=== PATIENT | male | born 1950 | race Caucasian/White ===

== ENCOUNTER → 2016-11-01 06:40 | Day surgery (SDC) | payer MEDICARE, OTHER ==
[~2016-11-01 06:40] MED LIST: Betamethasone INJ* 6 MG/ML 5 ML VIAL (30 MG) ONE; Buffered Lidocaine 1% SYR 3ML* 3 ML/SYR SYRINGE INTRADERM ONE; Buffered Lidocaine 1% SYR 3ML* 3 ML/SYR SYRINGE ONE; Bupivacaine 0.25% SDV* 30 ML ONE; Bupivacaine 0.5% SDV PF* 30 ML VIAL ONE; Dexamethasone IV* 4 MG/ML 1 ML (4 MG) ONE; DiMENhydriNATE IV* 50 MG/ML VIAL IV PUSH PRN; HYDROcodone/ACETAMIN 5-325 MG* 1 TAB ONE; HYDROcodone/ACETAMIN 5-325 MG* 1 TAB PO PRN; Lidocaine 1% INJ* 10 MG/ML 30 ML SDV ONE; Midazolam* 1 MG/ML 2 ML VIAL (2 MG) ONE; Ondansetron INJ* 2 MG/ML VIAL IV PRN; Propofol* 10 MG/ML 20 ML BTL IV PUSH ONE; ceFAZolin 2 GM PREMIX (*) 2 GM/50 ML BAG IVPB ONE; fentaNYL* 50 MCG/ML 2 ML VIAL (100 MCG VIAL) IV PRN; fentaNYL* 50 MCG/ML 2 ML VIAL (100 MCG VIAL) ONE; oxyCODONE TAB* 5 MG TAB PO PRN
[2016-11-01 10:52] VITALS: BP 138/76
--- NOTE | 2016-11-01 22:07 | OP ---
DATE OF OPERATION: 11/01/16 - [facility] DATE OF : 50 SURGEON: Duy Irby MD. PATIENT SCHEDULER: JHONNY Christian. ANESTHESIOLOGIST: Dr. Britt. ANESTHESIA: General. PRE-OP DIAGNOSES: 1. Left palm, middle, and small finger Dupuytren's disease. 2. Left middle trigger finger. 3. Left ring trigger finger. 4. Right middle trigger finger. 5. Right ring trigger finger. POST-OP DIAGNOSES: 1. Left palm, middle, and small finger Dupuytren's disease. 2. Left middle trigger finger. 3. Left ring trigger finger. 4. Right middle trigger finger. 5. Right ring trigger finger. OPERATIVE PROCEDURES: 1. Excision of Dupuytren's disease, left palm and middle finger. 2. Excision of Dupuytren's disease, left palm and small finger. 3. A1 nohemi release, left middle finger. 4. A1 nohemi release, left ring finger. 5. Corticosteroid injection of tendon sheath, right middle finger. 6. Corticosteroid injection of tendon sheath, right ring finger. INDICATIONS: Jose Alfredo is a 66-year-old gentleman with Dupuytren's disease. He also has left middle and ring trigger fingers and right middle and ring trigger fingers. I performed steroid injections in the office to all 4 trigger fingers. He got about 60% or 70% better and had significant improvement in the catching , but continues to have significant pain and discomfort in those areas. 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 ESTIMATED BLOOD LOSS: 5 mL. COMPLICATIONS: None. FINDINGS: As expected. DESCRIPTION OF PROCEDURE: Jose Alfredo was seen in the preoperative holding area and the correct side and site were marked. We then came back to the operating room and anesthesia was induced. I went ahead and cleansed the skin over the right middle and ring fingers A1 nohemi areas. After the skin was cleansed with alcohol, I then used a 25-gauge needle to inject the right middle finger A1 nohemi with 1 mL of 1% plain lidocaine and 6 mg of betamethasone. I then went ahead and used a 25-gauge needle to inject the right ring finger A1 nohemi with 1 mL of 1% plain lidocaine and 6 mg of betamethasone. The needle was withdrawn, the hand wiped off, and a Band-Aid applied. The left arm was then prepped and draped in the usual fashion and a formal time- out was performed. The left arm was then exsanguinated with the Esmarch and the tourniquet inflated 250 mmHg. The hand was then placed in the lead hand, and I went ahead and marked out Cameron-type incisions over the left middle and small fingers and a longitudinal incision over the A1 nohemi area of the ring finger. Work was begun in the middle finger where full thickness flaps were raised right off of the prominent central cord. Once I had raised the full thickness flaps, I went ahead and incised the central cord proximal. The digital nerves were identified and excision of the cord was carried out from distal to proximal, releasing the vertical septa of Legueu and Juvara to allow the central cord to come up. The central cord inserted on both the distal aspect of the A1 nohemi and the tendon sheath overlying the proximal phalanx. I went ahead and excised the central cord, taking care to preserve both digital nerves. When I had completed the excision of the cord, the MP joint contracture was completely released. I then went ahead and took the 15 blade and made a longitudinal incision through the A1 nohemi to do the trigger finger release. I went ahead and made sure that the release was adequate proximally and distally with the tenotomy scissors. Everything looked good, so I went ahead and irrigated these wounds and let the skin flaps fall back into place. I then went ahead and made the longitudinal incision over the A1 nohemi of the left ring finger. Dissection was carried down with the tenotomy scissors to expose the flexor tendon sheath. A1 nohemi was identified with the use of some Ragnell retractors. I then used a #15 blade to longitudinally incise this. The release was completed proximally and distally with the tenotomy scissors. I then went ahead and irrigated this wound as well. Lastly, I went ahead and raised full-thickness flaps off of the Dupuytren's cord over the small finger. It was an abductor cord originating from the fascia overlying the abductor digiti minimi distal musculature. Both radial and ulnar digital nerves of the small finger were identified. I protected these under direct visualization as I went ahead and excised the abductor cord from proximal to distal in standard fashion. The digital nerve at the level of the MP joint was actually crossing over top of the abductor cord and then dove back deep to the cord a little bit more distally. I went ahead and preserved this and completed the full excision of the cord. The cord was very adherent to the dermis over the area of the proximal phalanx and flap got a bit thin there, but I was able to preserve the skin flap. There was absolutely no more contracture in the PIP joint. Everything looked good, so I went ahead and irrigated that wound down and irrigated all the other wounds again. I then released the apices of each Cameron incision to give me a little more skin length. All the wounds were then closed with some 4-0 nylon sutures. I infiltrated the area with 0.25% Marcaine. The wounds were then dressed with Xeroform, 4x4's, sterile Webril, and an ulnar gutter splint grabbing the middle , ring, and small fingers was placed holding the MP and PIP joints in extension. Tourniquet was deflated and all the fingers pinked up immediately. He was then taken to the recovery room in stable condition. POSTOPERATIVE PLAN: I am going to see him back in 8 days' time and we will take him out of the splint. We will send him over to the therapist for some nighttime extension splinting and to get him moving the fingers. [id number] #: [id number] MTDD
== END | disposition home or self-care (01) ==
LOC: OREAST 06:40
PROVIDERS: ATTEND Orthopaedic Surgery Hand Surgery
DX: M72.0 Palmar fascial fibromatosis [Dupuytren] (principal); M65.352 Trigger finger, left little finger; M65.342 Trigger finger, left ring finger; M65.332 Trigger finger, left middle finger; M65.331 Trigger finger, right middle finger; M65.341 Trigger finger, right ring finger; I10 Essential (primary) hypertension; E78.5 Hyperlipidemia, unspecified; G47.33 Obstructive sleep apnea (adult) (pediatric)
CPT/HCPCS: 88304; J0690; J0702; J1100; J2250; J2704; J3010

== ENCOUNTER 2019-02-11 13:45 | Observation (INO) | payer MEDICARE, OTHER ==
--- OUTSIDE RECORDS SUMMARY | 2019-02-11 13:57 | XMS REPORT | Continuity of Care Document ---
:1950 External Reference #:[id number] Author Name Suri Adame M.D. Address [address] [place] [address] Care Team Providers Name Role Phone Suri Adame M.D. Care Team Information Voltage Inspector Unavailable Suri Adame M.D. Primary Care Physician Unavailable Payers Date Identification Numbers Payment Provider Subscriber Effective: 2019 Policy Number: [id number] [place] Alfredo Mcclellan PayID: [id number] [address] [place] [address] Effective: 2015 Policy Number: [id number] [place] Alfredo Mcclellan Expires: 2019 PayID: [id number] [address] [place] [address] Policy Number: [id number] [place] [address] Life 2ND To [facility] Jose Alfredo Mcclellan PayID: [id number] [address] [place] [address] Effective: 2011 Policy Number: [id number] [facility] Jose Alfredo Mcclellan Expires: 2017 PayID: [id number] [address] Attn: [place] [address] Advance Directives Description No Information Available Problems Active Problems Provider Date Essential hypertension Carter Burton M.D. Onset: 06/04/2014 Hyperlipidemia Carter Burton M.D. Onset: 06/04/2014 Degenerative joint disease involving multiple Suri Adame M.D. Onset: 12/03 joints Rosacea Suri Adame M.D. Onset: 12/03/2015 Clear cell carcinoma of kidney Suri Adame M.D. Onset: 03/20/2016 Disorder of bone Suri Adame M.D. Onset: 01/31/2019 Impaired fasting glycaemia Suri Adame M.D. Onset: 08/02/2018 Inactive Problems Renal mass Suri Adame M.D. Onset: 12/03/2015 Inactive: 07/28/2016 Resolved Problems Eruption Carter Burton M.D. Onset: 06/04/2014 Resolved: 12/03/2015 Family History Date Family Member(s) Observation Comments Father due to Congestive Heart Failure () Father due to Diabetes () Mother due to Natural Causes () Children 2 Social History Type Date Description Comments Sex Unknown Marital Status Legal Status: >35 years Lives With Spouse Diet Healthy, Well Balanced Occupation Retired also retired from [employer] Tobacco Use Start: Unknown End: Former Cigarette Smoker quit Unknown Smoking Status Reviewed: 10/10/04 Former Cigarette Smoker quit ETOH Use Consumes 2 beers per day Tobacco Use Start: Unknown End: Patient is a former Unknown smoker Exercise Exercises sporadically Type/Frequency Allergies, Adverse Reactions, Alerts Description No Known Drug Allergies Medications Active Medications SIG Qnty Indications Ordering Date Provider Meloxicam Take 1 Tablet By 30tabs M72.0 [place] 08/02/2018 15mg Tablets Mouth Once Daily Miguel Angel, [employer] With Food Meclizine HCL 1 by mouth three 90tabs H81.10 Alexandra 10/21/2017 12.5mg times a day as Miguel Angel, [employer] Tablets needed dizziness Metoprolol Tartrate take 1/2 tablet 30tabs Alexandra 10/21/2017 25mg by mouth every Miguel Angel, [employer] Tablets day Aspir-81 1 by mouth every 90tabs Suri Adame, 07/12/[address] chance Banks Metoprolol Succinate take one tablet 30tabs I10 Suri Adame, 07/28/2016 ER by mouth one M.DStar 25mg Tablets ER 24HR time daily Atorvastatin Calcium Take 1 Tablet By 90tabs E78.4 Clark Cristina 06/30/2016 20mg Mouth Every Day MD Tori Tablets Mometasone Furoate 1 apply to Unknown 0.1% affected area Ointment twice a day for up to 7 days Lisinopril Take 2 Tablets 180tabs I10 Alexandra 10mg Tablets By Mouth Every Miguel Angel, [employer] Day Hydrocortisone apply sparingly Unknown 1% Cream to affected areas of skin Latanoprost one drop to each Unknown 0.005% eye at bedtime Solution Super B Complex/C 1 po qd Unknown Capsules Centrum Silver 1 po qd Unknown Tablets Calcium 600 With Unknown Vitamin D History Medications Benadryl Allergy 1-2 every 12 60caps B02.9 Alexandra 11/01/2018 - 25mg hours by mouth [facility], [facility] 01/31/2019 Capsules as needed itching Valacyclovir HCL 1 tab by mouth 21tabs B02.9 [facility], 10/23/2018 - 1gm three times a M.D. 01/31/2019 Tablets day x 7 day Fluticasone 1 puff each 16units [facility], 11/23/2017 - Propionate nostril twice a M.D. 08/02/2018 50mcg/Act day Suspension Meloxicam take one tablet 30tabs M72.0 [place] 01/26/2017 - 15mg Tablets by mouth once [facility] 08/02/2018 daily with food Acetaminophen-Codeine 1 tab by mouth 45tabs M72.0 [facility], 2016 - #3 every 6 hours as M.D. 08/02/2018 300-30mg Tablets needed Avar-E Emollient apply to face 45gm [facility], 12/03/2015 - 10-5% every night M.D. 01/09/2018 Cream Omeprazole 1 by mouth every 30caps K92.1 Carter Burton M.D. 08/28/2015 - 40mg day 07/28/[address] Abdi apply to 1bottle 110.1 Carter Burton M.D. 02/06/2015 - 8% Solution affected nail 08/02/2018 daily as directed Levsin 1-2 by mouth 60tabs 564.1 Carter Burton M.D. 07/10/2014 - 0.125mg Tablets every 4 hours as 12/03/2015 needed Metoprolol Succinate 1 by mouth every 90tabs I10 [facility], 06/04/2014 - ER day M.D. 07/28/2016 50mg Tablets ER 24HR Metronidazole apply to 1tube R21 Carter Burton M.D. 06/04/2014 - 0.75% Gel affected facial 08/02/2018 areas twice a day after washing face Dicyclomine HCL 1 by mouth four 90caps 564.1 Carter Bruton M.D. 06/04/2014 - 10mg times a day as 07/10/2014 Capsules needed Mobic 1 by mouth twice 60tabs 715.09 Carter Burton M.D. 06/04/2014 - 7.5mg Tablets a day as needed 12/03/2015 Avar-E Emollient apply qd prn Unknown - 10-5% 12/03/2015 Cream Zyrtec Allergy 1 by mouth every Unknown - 10mg day 10/23/2018 Tablets Insync Supplement 1 po qd Unknown - 07/28/2016 Fibercon 1 po qd Unknown - 625mg Tablets 07/28/2016 Meloxicam 1 by mouth twice 60tabs Suri Adame - 7.5mg Tablets a day Darren 01/26/2017 Aspirin 81 1 po qd Unknown - 81mg Tablets 07/28/2016 DR Vickers prn Unknown - 220mg Tablets 07/12/2017 Metoprolol Tartrate 1 po qd 401.9 Unknown - 06/04/2014 25mg Tablets Lisinopril 1 po qd Unknown - 10mg Tablets 06/04/2014 Atorvastatin Calcium 1 po qd 90tabs 272.4 Carter Burton M.D. - 12/03/2015 40mg Tablets Immunizations CPT Code Status Date Vaccine Lot # [id number] Given 08/02/2018 High-Dose, Influenza Virus Vacccine-fluzone 65 and [id number] older 09043 Given 07/12/2017 Pneumococcal Immunization [id number] Given 07/12/2017 High-Dose, Influenza Virus Vacccine-fluzone 65 and [id number] older 67105 Given 07/28/2016 High-Dose, Influenza Virus Vacccine-fluzone 65 and [id number] older 34678 Given 12/03/2015 Pneumococcal Conjugate Vacc-13 [id number] Given 05/24/2014 Tdap Tetanus, W Pertussis [id number] Vital Signs Date Vital Result Comment 01/31/2019 8:58am BP Systolic 140 mmHg BP Diastolic 76 mmHg Heart Rate 80 /min Body Temperature 99.1 F Respiratory Rate 16 /min Height 65.5 inches 5'5.50" Weight 165.00 lb BMI (Body Mass Index) 27.0 kg/m2 11/01/2018 8:51am BP Systolic 128 mmHg BP Diastolic 88 mmHg Heart Rate 82 /min Body Temperature 98.2 F Respiratory Rate 16 /min Weight 161.00 lb 10/23/2018 12:29pm BP Systolic 130 mmHg BP Diastolic 70 mmHg Heart Rate 72 /min Body Temperature 98.3 F Respiratory Rate 16 /min Height 65.5 inches 5'5.50" Weight 166.00 lb BMI (Body Mass Index) 27.2 kg/m2 08/02/2018 9:30am BP Systolic 130 mmHg BP Diastolic 62 mmHg Heart Rate 68 /min Body Temperature 98.6 F Respiratory Rate 14 /min Height 65.5 inches 5'5.50" Weight 163.00 lb BMI (Body Mass Index) 26.7 kg/m2 01/10/2018 10:05am BP Systolic 126 mmHg BP Diastolic 70 mmHg Heart Rate 74 /min Body Temperature 98.8 F Respiratory Rate 16 /min Height 65.5 inches 5'5.50" Weight 167.00 lb BMI (Body Mass Index) 27.4 kg/m2 11/30/2017 4:35pm BP Systolic 160 mmHg BP Diastolic 68 mmHg Heart Rate 64 /min Body Temperature 98.1 F Respiratory Rate 16 /min Height 65.5 inches 5'5.50" Weight 164.00 lb BMI (Body Mass Index) 26.9 kg/m2 10/21/2017 11:06am BP Systolic 170 mmHg BP Diastolic 100 mmHg Heart Rate 80 /min Body Temperature 99.3 F Height 65.5 inches 5'5.50" Weight 166.38 lb BMI (Body Mass Index) 27.3 kg/m2 10/07/2017 10:42am BP Systolic 160 mmHg BP Diastolic 96 mmHg Heart Rate 95 /min Body Temperature 98.1 F Respiratory Rate 16 /min O2 % BldC Oximetry 98 % Height 65.5 inches 5'5.50" Weight 163.00 lb BMI (Body Mass Index) 26.7 kg/m2 07/12/2017 2:17pm BP Systolic 140 mmHg BP Diastolic 80 mmHg Heart Rate 76 /min Body Temperature 97.9 F Respiratory Rate 18 /min Height 65.5 inches 5'5.50" Weight 160.00 lb BMI (Body Mass Index) 26.2 kg/m2 01/26/2017 10:21am BP Systolic 128 mmHg BP Diastolic 72 mmHg Heart Rate 64 /min Respiratory Rate 18 /min Height 65.25 inches 5'5.25" measured 12/03/15 Weight 169.12 lb BMI (Body Mass Index) 27.9 kg/m2 07/28/2016 8:53am BP Systolic 124 mmHg BP Diastolic 64 mmHg Heart Rate 66 /min Body Temperature 99.0 F Respiratory Rate 16 /min Height 65.25 inches 5'5.25" measured 12/03/15 Weight 167.25 lb BMI (Body Mass Index) 27.6 kg/m2 12/03/2015 1:35pm BP Systolic 138 mmHg BP Diastolic 70 mmHg Heart Rate 72 /min Body Temperature 98.1 F Respiratory Rate 16 /min Height 65.25 inches 5'5.25" measured 12/03/15 Weight 171.25 lb BMI (Body Mass Index) 28.3 kg/m2 08/28/2015 11:15am BP Systolic 142 mmHg BP Diastolic 88 mmHg Heart Rate 84 /min Body Temperature 97.9 F Respiratory Rate 18 /min Height 65.5 inches 5'5.50" Weight 168.00 lb BMI (Body Mass Index) 27.5 kg/m2 02/06/2015 12:55pm BP Systolic 138 mmHg BP Diastolic 86 mmHg Heart Rate 78 /min Body Temperature 98.5 F Respiratory Rate 16 /min Height 65.5 inches 5'5.50" Weight 166.00 lb BMI (Body Mass Index) 27.2 kg/m2 10/17/2014 1:21pm BP Systolic 140 mmHg BP Diastolic 80 mmHg Heart Rate 90 /min Body Temperature 98.7 F Respiratory Rate 18 /min Height 65.5 inches 5'5.50" Weight 159.00 lb BMI (Body Mass Index) 26.1 kg/m2 07/10/2014 11:06am BP Systolic 148 mmHg BP Diastolic 78 mmHg Heart Rate 72 /min Body Temperature 98.2 F Respiratory Rate 15 /min Height 65.5 inches 5'5.50" Weight 160.00 lb BMI (Body Mass Index) 26.2 kg/m2 06/04/2014 2:05pm BP Systolic 120 mmHg BP Diastolic 82 mmHg Heart Rate 78 /min Body Temperature 97.5 F Height 65.5 inches 5'5.50" Weight 158.50 lb BMI (Body Mass Index) 26.0 kg/m2 05/01/2014 1:54pm BP Systolic 124 mmHg BP Diastolic 78 mmHg Heart Rate 84 /min Body Temperature 98.6 F Respiratory Rate 16 /min Height 65.5 inches 5'5.50" Weight 157.50 lb BMI (Body Mass Index) 25.8 kg/m2 Results Test Date Facility Test Result H/L Range Note Comprehensive Metabolic 08/02/2018 [facility] Sodium 145 mEq/L 134- 149 Prof Potassium 4.9 mEq/L 3.6-5.5 Chloride 96 mEq/L 94-112 Carbon Dioxide 23 mEq/L 21-32 Glucose 111 mg/dL High 70-105 1 BUN 11 mg/dL 6-26 Creatinine 0.8 mg/dL 0.6-1.4 BUN/Creat Ratio 13.8 CALC 8.0-36.0 Calcium 9.8 mg/dL 8.6-10.2 Total Protein 7.1 g/dL 6.4-8.3 Albumin 4.9 g/dL 3.8-5.5 Globulin 2.2 g/dL 2.0-4.8 A/G Ratio 2.2 CALC 0.6-2.3 Alk. Phosphatase 67 U/L 22-95 Alt (SGPT) 26 U/L 7-35 Ast (Sgot) 27 U/L 5-34 Total Bilirubin 0.6 mg/dL 0.2-1.3 GFR Non- >60 ml/min/1.73m^ >=60 GFR >60 ml/min/1.73m^ >=60 Lipid Profile 08/02/2018 [facility] Cholesterol 250 mg/dL High 120- 200 Triglycerides 171 mg/dL 30-200 HDL Cholesterol 93 mg/dL High 30-70 LDL (Calculated) 123 CALC 0-129 VLDL Cholesterol 34 mg/dL 0-50 HDL Risk Factor 2.7 CALC 0.0-4.4 Laboratory test finding 08/02/2018 [facility] TSH 2.32 mIU/L 0.50- 6.00 CBC Electronic Fma 08/02/2018 [facility] WBC 4.1 x10^3/UL 4.0-10.0 RBC 4.60 x10^6/UL 3.93-6.00 HGB 15.1 g/dL 12.0-17.0 HCT 46 % 35-50 MCV 99.1 fL High 80.0-95.0 MCH 32.8 pg High 25.6-32.2 MCHC 33.1 g/dL 32.2-36.0 RDW-CV 13.1 % 11.6-14.4 PLT 237 x10^3/UL 163-400 MPV 10.7 fL 9.4-12.4 [place]# 2.45 x10^3/UL 1.56-6.13 Lymph# 0.92 x10^3/UL Low 1.18-3.74 [place]# 0.59 x10^3/UL 0.24-0.82 Eos # 0.1 x10^3/UL 0.0-0.5 Baso # 0.04 x10^3/UL 0.01-0.08 [place]% 60.4 % 34.0-70.0 Lymph % 22.7 % 20.0-52.0 [place]% 14.5 % High 5.0-12.0 Eos% 1.2 % 0.7-7.0 Baso% 1.0 % 0.1-1.2 Laboratory test 08/02/2018 [facility] Hemoglobin A1c 5.1 % 4.1-5.7 finding (607)- - (Fma) Ua - Micro (Fma) 08/02/2018 [facility] Medicine Appearance clear (607)- - Color yellow Glucose, Urine (Fma/CMC/CTX) neg Bilirubin neg Ketones 40mg/dl # SP Grav 1.025 Blood neg PH 5.5 Protein neg Urobil 0.2 Nitrite neg Leukocytes (Fma/CMC/[facility]rex) neg Hyaline - /Lpf Granular - /Lpf WBC (Fma,[facility]) 0-1 # RBC - Mucus (Fma/CBC/[facility]rex) - /Lpf Epith - /Lpf Bacteria - /Hpf Amorphous (Fma/CMC/[facility]) - /Lpf Crystals, Fluid (Fma/CMC/CTX) - Lipid Profile 01/10/2018 [facility] Cholesterol 215 mg/dL High 120- 200 Triglycerides 153 mg/dL 30-200 HDL Cholesterol 75 mg/dL High 30-70 2 LDL (Calculated) 109 CALC 0-129 VLDL Cholesterol 31 mg/dL 0-50 HDL Risk Factor 2.9 CALC 0.0-4.4 Comprehensive Metabolic Prof 01/10/2018 [facility] Sodium 142 mEq/L 134-149 Potassium 4.7 mEq/L 3.6-5.5 Chloride 99 mEq/L 94-112 Carbon Dioxide 26 mEq/L 21-32 Glucose 113 mg/dL High 70-105 3 BUN 14 mg/dL 6-26 Creatinine 0.7 mg/dL 0.6-1.4 BUN/Creat Ratio 20.0 CALC 8.0-36.0 Calcium 9.6 mg/dL 8.6-10.2 Total Protein 7.2 g/dL 6.4-8.3 Albumin 4.8 g/dL 3.8-5.5 Globulin 2.4 g/dL 2.0-4.8 A/G Ratio 2.0 CALC 0.6-2.3 Alk. Phosphatase 76 U/L 22-95 Alt (SGPT) 26 U/L 7-35 Ast (Sgot) 24 U/L 5-34 Total Bilirubin 0.5 mg/dL 0.2-1.3 GFR Non- >60 ml/min/1.73m^ >=60 GFR >60 ml/min/1.73m^ >=60 CBC Manual Diff-a 01/10/2018 [facility] WBC 4.93 4.0-10.0 (607)- - RBC 4.50 3.93-6.0 Hemoglobin (Fma/CMC/CTX) 14.5 g/dL 12.0-17.0 Hematocrit (Fma/CMC/CTX) 43.4 % 35.0-50.0 Mean Corpuscular Vol 96.4 fL High 80-95 Mean Corpuscular Hemoglobin 32.2 pg 25.6-32.2 Mean Corpuscular Hemo Concen 33.4 g/dL 32.2-36.0 Platelets 230 10^3/ul 163-400 RDW 13.2 11.6-13.7 Mean Platelet Volume 10.8 fL 9.4-12.4 Neutrophil 54 Band 12 Lymphocytes 22 Monocyte 10 # Eosinophils 1 Metamyelocytes 1 Z#Comment rbc/plt normal Basic Metabolic Panel 10/14/2017 [facility] Sodium 136 mmol/L N 133-145 Potassium 4.2 mmol/L N 3.5-5.0 Chloride 99 mmol/L Low 101-111 Co2 Carbon Dioxide 30 mmol/L N 22-32 Anion Gap 7 mmol/L N 2-11 Glucose 120 mg/dL High 70-100 Blood Urea Nitrogen 10 mg/dL N 6-24 Creatinine 0.81 mg/dL N 0.67-1.17 BUN/Creatinine Ratio 12.3 N 8-20 Calcium 9.3 mg/dL N 8.6-10.3 Egfr Non- 95.1 >60 Egfr 122.2 >60 4 Laboratory test 07/05/2017 [facility] LDL, Direct 127 mg/dL 0-130 finding Complete Blood Count 07/05/2017 [facility] WBC 3.1 x10^3/UL Low 3.6- 9.6 5 RBC 4.58 x10^6/UL 3.90-5.70 HGB 15.3 g/dL 12.1-17.2 HCT 44 % 36-50 MCV 96.0 fL 82.2-97.4 MCH 33.3 pg 27.6-33.3 MCHC 34.7 g/dL 33.0-35.5 RDW 14.2 % High 11.6-13.7 PLT 250 x10^3/UL 150-400 MPV 6.6 fL Low 7.4-10.4 Gran # 1.8 x10^3/UL 1.5-7.2 Lymph# 1.0 x10^3/UL 0.7-4.9 [place]# 0.3 x10^3/UL 0.1-0.9 Gran % 53.6 % 42.2-75.2 Lymph % 34.8 % 20.5-51.1 [place]% 11.6 % High 1.7-9.3 6 Lipid Profile 07/05/2017 [facility] Cholesterol 266 mg/dL High 120- 200 Triglycerides 289 mg/dL High 30-200 HDL Cholesterol 91 mg/dL High 30-70 LDL (Calculated) 117 CALC 0-129 VLDL Cholesterol 58 mg/dL High 0-50 HDL Risk Factor 2.9 CALC 0.0-4.4 Comprehensive Metabolic Prof 07/05/2017 [facility] Sodium 140 mEq/L 134-149 Potassium 4.7 mEq/L 3.6-5.5 Chloride 102 mEq/L 94-112 Carbon Dioxide 23 mEq/L 21-32 Glucose 99 mg/dL 70-105 BUN 18 mg/dL 6-26 Creatinine 0.7 mg/dL 0.6-1.4 BUN/Creat Ratio 25.7 CALC 8.0-36.0 Calcium 9.7 mg/dL 8.6-10.2 Total Protein 6.9 g/dL 6.4-8.3 Albumin 4.8 g/dL 3.8-5.5 Globulin 2.1 g/dL 2.0-4.8 A/G Ratio 2.3 CALC 0.6-2.3 Alk. Phosphatase 60 U/L 22-95 Alt (SGPT) 23 U/L 7-35 Ast (Sgot) 27 U/L 5-34 Total Bilirubin 0.6 mg/dL 0.2-1.3 GFR Non- >60 ml/min/1.73m^ >=60 GFR >60 ml/min/1.73m^ >=60 Comprehensive Metabolic Prof 03/15/2017 [facility] Sodium 134 mEq/L 134-149 Potassium 4.2 mEq/L 3.6-5.5 Chloride 97 mEq/L 94-112 Carbon Dioxide 25 mEq/L 21-32 Glucose 88 mg/dL 70-105 BUN 13 mg/dL 6-26 Creatinine 0.6 mg/dL 0.6-1.4 BUN/Creat Ratio 21.7 CALC 8.0-36.0 Calcium 8.6 mg/dL 8.6-10.2 Total Protein 6.7 g/dL 6.4-8.3 Albumin 4.4 g/dL 3.8-5.5 Globulin 2.3 g/dL 2.0-4.8 A/G Ratio 1.9 CALC 0.6-2.3 Alk. Phosphatase 68 U/L 22-95 Alt (SGPT) 23 U/L 7-35 Ast (Sgot) 23 U/L 5-34 Total Bilirubin 0.5 mg/dL 0.2-1.3 GFR Non- >60 ml/min/1.73m^ >=60 GFR >60 ml/min/1.73m^ >=60 Lipid Profile 03/15/2017 [facility] Cholesterol 234 mg/dL High 120- 200 Triglycerides 175 mg/dL 30-200 HDL Cholesterol 84 mg/dL High 30-70 LDL (Calculated) 115 CALC 0-129 VLDL Cholesterol 35 mg/dL 0-50 HDL Risk Factor 2.8 CALC 0.0-4.4 Complete Blood Count 03/15/2017 [facility] WBC 3.0 x10^3/UL Low 3.6- 9.6 7 RBC 4.36 x10^6/UL 3.90-5.70 HGB 14.5 g/dL 12.1-17.2 HCT 42 % 36-50 MCV 97.0 fL 82.2-97.4 MCH 33.3 pg 27.6-33.3 MCHC 34.4 g/dL 33.0-35.5 RDW 13.9 % High 11.6-13.7 PLT 252 x10^3/UL 150-400 MPV 6.9 fL Low 7.4-10.4 Gran # 1.7 x10^3/UL 1.5-7.2 Lymph# 1.0 x10^3/UL 0.7-4.9 [place]# 0.3 x10^3/UL 0.1-0.9 Gran % 54.3 % 42.2-75.2 Lymph % 34.5 % 20.5-51.1 [place]% 11.2 % High 1.7-9.3 8 CBC Manual Diff-Fma 08/05/2016 [facility] WBC 9.6 3.6-9.6 (607)- - RBC 4.37 3.90-5.70 Hemoglobin (Fma/CMC/CTX) 14.6 g/dL 12.1 - 17.2 Hematocrit (Fma/CMC/CTX) 42.7 % 36.1 - 50.3 Mean Corpuscular Vol 98 High 82.2-97.4 Mean Corpuscular Hemoglobin 33.3 27.6-33.3 Mean Corpuscular Hemo Concen 34.1 32.0-36.0 Platelets 258 10^3/ul 150-400 RDW 14.6 High 11.6-13.7 Mean Platelet Volume 6.8 5.5-11.0 Neutrophil 85 Band 1 Lymphocytes 6 Monocyte 8 Macrocytosis slight Z#Comment plts normal Complete Blood Count 07/28/2016 [facility] WBC 2.8 x10^3/UL Low 3.6- 9.6 9 RBC 4.43 x10^6/UL 3.90-5.70 HGB 14.7 g/dL 12.1-17.2 HCT 43 % 36-50 MCV 97.0 fL 82.2-97.4 MCH 33.3 pg 27.6-33.3 MCHC 34.3 g/dL 33.0-35.5 RDW 14.3 % High 11.6-13.7 PLT 237 x10^3/UL 150-400 MPV 6.9 fL Low 7.4-10.4 Gran # 1.5 x10^3/UL 1.5-7.2 Lymph# 1.0 x10^3/UL 0.7-4.9 [place]# 0.3 x10^3/UL 0.1-0.9 Gran % 50.9 % 42.2-75.2 Lymph % 37.3 % 20.5-51.1 [place]% 11.8 % High 1.7-9.3 10 Lipid Profile 07/28/2016 [facility] Cholesterol 241 mg/dL High 120- 200 Triglycerides 158 mg/dL 30-200 HDL Cholesterol 81 mg/dL High 30-70 11 LDL (Calculated) 128 CALC 0-129 VLDL Cholesterol 32 mg/dL 0-50 HDL Risk Factor 3.0 CALC 0.0-4.4 Comprehensive Metabolic Prof 07/28/2016 [facility] Sodium 139 mEq/L 134-149 Potassium 4.8 mEq/L 3.6-5.5 Chloride 98 mEq/L 94-112 Carbon Dioxide 27 mEq/L 21-32 Glucose 93 mg/dL 70-105 BUN 13 mg/dL 6-26 Creatinine 0.7 mg/dL 0.6-1.4 BUN/Creat Ratio 18.6 CALC 8.0-36.0 Calcium 9.4 mg/dL 8.6-10.2 Total Protein 7.1 g/dL 6.4-8.3 Albumin 4.6 g/dL 3.8-5.5 Globulin 2.5 g/dL 2.0-4.8 A/G Ratio 1.8 CALC 0.6-2.3 Alk. Phosphatase 62 U/L 22-95 Alt (SGPT) 30 U/L 7-35 Ast (Sgot) 29 U/L 5-34 Total Bilirubin 0.5 mg/dL 0.2-1.3 GFR Non- >60 ml/min/1.73m^ >=60 GFR >60 ml/min/1.73m^ >=60 Comprehensive Metabolic Prof 06/30/2016 [facility] Sodium 138 mEq/L 134-149 Potassium 4.7 mEq/L 3.6-5.5 Chloride 99 mEq/L 94-112 Carbon Dioxide 27 mEq/L 21-32 Glucose 87 mg/dL 70-105 BUN 11 mg/dL 6-26 Creatinine 0.7 mg/dL 0.6-1.4 BUN/Creat Ratio 15.7 CALC 8.0-36.0 Calcium 9.3 mg/dL 8.6-10.2 Total Protein 7.1 g/dL 6.4-8.3 Albumin 4.0 g/dL 3.8-5.5 Globulin 3.1 g/dL 2.0-4.8 A/G Ratio 1.3 CALC 0.6-2.3 Alk. Phosphatase 63 U/L 22-95 Alt (SGPT) 25 U/L 7-35 Ast (Sgot) 25 U/L 5-34 Total Bilirubin 0.5 mg/dL 0.2-1.3 GFR Non- >60 ml/min/1.73m^ >=60 GFR >60 ml/min/1.73m^ >=60 Lipid Profile 06/30/2016 [facility] Cholesterol 338 mg/dL High 120- 200 Triglycerides 289 mg/dL High 30-200 HDL Cholesterol 84 mg/dL High 30-70 12 LDL (Calculated) 196 CALC High 0-129 VLDL Cholesterol 58 mg/dL High 0-50 HDL Risk Factor 4.0 CALC 0.0-4.4 Complete Blood Count 06/30/2016 [facility] WBC 3.2 x10^3/UL Low 3.6- 9.6 13 RBC 4.41 x10^6/UL 3.90-5.70 HGB 14.9 g/dL 12.1-17.2 HCT 43 % 36-50 MCV 98.0 fL High 82.2-97.4 14 MCH 33.9 pg High 27.6-33.3 MCHC 34.7 g/dL 33.0-35.5 RDW 14.5 % High 11.6-13.7 PLT 236 x10^3/UL 150-400 MPV 7.2 fL Low 7.4-10.4 Gran # 1.7 x10^3/UL 1.5-7.2 Lymph# 1.2 x10^3/UL 0.7-4.9 [place]# 0.3 x10^3/UL 0.1-0.9 Gran % 49.4 % 42.2-75.2 Lymph % 40.0 % 20.5-51.1 [place]% 10.6 % High 1.7-9.3 15 Laboratory test 06/30/2016 [facility] LDL, Direct 216 mg/dL High 0- 130 finding Basic Metabolic 10/17/2014 [facility] Sodium 134 mEq/L 134-149 Profile Potassium 4.4 mEq/L 3.6-5.5 Chloride 96 mEq/L 94-112 Carbon Dioxide 30 mEq/L 21-32 Glucose 103 mg/dL 70-105 BUN 14 mg/dL 6-26 Creatinine 0.7 mg/dL 0.6-1.4 BUN/Creat Ratio 20.0 CALC 8.0-36.0 Calcium 10.0 mg/dL 8.6-10.2 CBC Electronic (Fma) 10/17/2014 [facility] WBC 4.6 3.6-9.6 (607)- - RBC 4.51 3.90-5.70 Hemoglobin (Fma/CMC/CTX) 15.0 g/dL 12.1 - 17.2 Hematocrit (Fma/CMC/CTX) 43.9 % 36.1 - 50.3 Platelets 246 10^3/ul 150-400 Lymph% 22.7 % 17.0-48.0 Mixed% 8.8 Neutrophils % 68.5 Mean Corpuscular Vol 97 82.2-97.4 Mean Corpuscular Hemoglobin 33.2 27.6-33.3 Mean Corpuscular Hemo Concen 34.2 32.0-36.0 RDW 14.5 High 11.6-13.7 Mean Platelet Volume 6.7 5.5-11.0 PT + PTT No 10/17/2014 [facility] PTT 26.9 seconds 23.7-35.5 Therpy/Unkn [address] [place] [address] [phone] PT (No Therapy/Unknown) 11.5 seconds Low 11.7-14.5 16 Inr 0.9 17 Surgical Pathology 09/20/2014 [facility] [place] DATE: <SEE NOTE> Oncology CBC Auto 06/24/2014 [facility] [place] Blood Count 5.3 10^3/uL 4.8-10.8 Diff Red Blood Count 4.70 10^6/uL 4.0-5.4 Hemoglobin 15.0 g/dL 14.0-18.0 Hematocrit 45 % 42-52 Mean Corpuscular Volume 96 fL High 80-94 Mean Corpuscular Hemoglobin 32 pg High 27-31 Mean Corpuscular HGB Conc 33 g/dL 31-36 Red Cell Distribution Width 14 % 10.5-15 Platelet Count 170 10^3/uL 150-450 Mean Platelet Volume 8 um3 7.4-10.4 Abs Neutrophils 3.4 10^3/uL 1.5-7.7 Abs Lymphocytes 1.0 10^3/uL 1.0-4.8 Abs Monocytes 0.7 10^3/uL 0-0.8 Abs Eosinophils 0.1 10^3/uL 0-0.6 Abs Basophils 0.1 10^3/uL 0-0.2 Granulocyte % 65.2 % 38-83 Lymphocyte % 19.2 % Low 25-47 Monocyte % 12.6 % High 1-9 Eosinophil % 2.0 % 0-6 Basophil % 1.0 % 0-2 Comprehensive Metabolic Prof 06/06/2014 Mendez Gemma Sodium 146 mEq/L 134-149 Potassium 4.7 mEq/L 3.6-5.5 Chloride 105 mEq/L 94-112 Carbon Dioxide 23 mEq/L 21-32 Glucose 93 mg/dL 70-105 BUN 15 mg/dL 6-26 Creatinine 0.7 mg/dL 0.6-1.4 BUN/Creat Ratio 21.4 CALC 8.0-36.0 Calcium 9.2 mg/dL 8.6-10.2 Total Protein 7.8 g/dL 6.3-8.1 Albumin 4.8 g/dL 3.8-5.5 Globulin 3.0 g/dL 2.0-4.8 A/G Ratio 1.6 CALC 0.6-2.3 Alk. Phosphatase 60 U/L 22-95 Alt (SGPT) 26 U/L 7-35 Ast (Sgot) 25 U/L 5-34 Total Bilirubin 0.4 mg/dL 0.2-1.3 Lipid Profile 06/06/2014 Andrea Gemma Cholesterol 249 mg/dL High 120- 200 Triglycerides 158 mg/dL 30-200 HDL Cholesterol 79 mg/dL High 30-70 19 LDL (Calculated) 138 CALC High 0-129 VLDL Cholesterol 32 mg/dL 0-50 HDL Risk Factor 3.2 CALC 0.0-4.4 1 consistent w/ previous results 2 consistent w/ previous results 3 RESULTS VERIFIED BY REPEAT ANALYSIS 4 Because ethnic data is not always readily available, this report includes an eGFR for both -Americans and non- Americans. The National Kidney Disease Education Program (NKDEP) does not endorse the use of the MDRD equation for patients that are not between the ages of 18 and 70, are , have extremes of body size, muscle mass, or nutritional status, or are non- or non-. According to the [employer] Kid[employer] Foundation, irrespective of diagnosis, the stage of the disease is based on the level of kidney function: Stage Description GFR(mL/min/1.73 m(2)) 1 Kidney damage with normal or decreased GFR 90 2 Kidney damage with mild decrease in GFR 60-89 3 Moderate decrease in GFR 30-59 4 Severe decrease in GFR 15-29 5 Kidney failure <15 (or dialysis) 5 RESULTS VERIFIED BY REPEAT ANALYSIS 6 RESULTS VERIFIED BY REPEAT ANALYSIS 7 RESULTS VERIFIED BY REPEAT ANALYSIS 8 RESULTS VERIFIED BY REPEAT ANALYSIS 9 RESULTS VERIFIED BY REPEAT ANALYSIS 10 consistent w/ previous results 11 consistent w/ previous results 12 consistent w/ previous results 13 RESULTS VERIFIED BY REPEAT ANALYSIS 14 RESULTS VERIFIED BY REPEAT ANALYSIS 15 RESULTS VERIFIED BY REPEAT ANALYSIS 16 . 17 INTERNATIONAL NORMALIZED RATIO(INR) INDICATIONS INR RANGE PATIENTS NOT ON ANTICOAGULANT THERAPY * DEEP VENOUS THROMBOSIS 2.0-3.0 PULMONARY EMBOLISM 2.0-3.0 ATRIAL FIBRILLATION 2.0-3.0 PROPHYLAXIS: 2.0-3.0 HIGH-RISK SURGERY TISSUE HEART VALVES ATRIAL FIBRILLATION ACUTE MYOCARDIAL INFARCTION VALVULAR HEART DISEASE MECHANICAL PROSTHETIC VALVE 2.5-3.5 * USE OF INR VALUES SHOULD BE LIMITED TO PATIENTS WHO ARE ON STABLE ORAL ANTICOAGULANT THERAPY. AN INR ABOVE 5.0-5.5 APPEARS TO BE ASSOCIATED WITH AN UNACCEPTABLY HIGH RISK OF BLEEDING. 18 RUN DATE: 09/24/14 [facility] LAB LIVE PAGE 1 RUN TIME: [address] [place] [id number] Specimen Inquiry Name: MCCLELLANJOSE ALFREDO COLEMAN : [address]: Yaw Walsh MD Acct: [id number] Unit: [id number] AGE: 64 Location: [facility] Re09/20/14 SEX: M Status: REG REF SPEC: [id number] FAVIOLA: 09/20/14-1416 [facility] DR: Yaw Walsh MD REQ: [id number] RECD: 09/20/14 STATUS: SAMANTHA ARNODL DR: Carter Burton MD _ ORDERED: LEVEL IV FINAL DIAGNOSIS Colon, random biopsies: -- Large intestinal mucosa with no significant pathologic abnormality. -- No evidence of microscopic/lymphocytic colitis, collagenous colitis or other chronic inflammatory bowel process identified. CLINICAL HISTORY Blood in stool, change in bowel habits for screening colonoscopy. Incomplete colonoscopy 12/20. POST-OPERATIVE DIAGNOSIS Screening colonoscopy to cecum, appy orifice and IC fold visible as before very difficult to get to cecum. Appy redundant colon. Mild diverticulosis, colon biopsy right colon - no polyps. IBD vs diverticulosis, rectal normal. Conclusion: negative colonoscopy - biopsy pending. Re - ten years. GROSS DESCRIPTION The specimen is received in formalin labeled, Random Colon Biopsy, and consists of a 1.0 x 0.4 x 0.1 cm aggregate of multiple eubanks-white irregular soft tissue fragments , which is submitted entirely in one cassette. Signed (signature on file) Cortes Barron MD 1215 END OF REPORT * ML=Testing performed at Main Lab DEPARTMENT OF PATHOLOGY, [address] [place] [address] Cortes Barron M.D. Director [facility] # [id number] 19 RESULTS VERIFIED BY REPEAT ANALYSIS Procedures Date Code Description Status 09/18/2018 55610 Dxa Bone Density Study One Or More Sites Axial Skeleton Completed 10/07/2017 57079 Pulse Oximetry Completed 10/17/2014 27124 Electrocardiogram Complete Completed 10/10/2013 56638232 Colonoscopy Completed Encounters Type Date Location Provider Dx Diagnosis Office Visit 11/01/2018 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 complications Office Visit 08/02/2018 9:20a [facility] Office Suri Adame, I10 Essential (primary) M.D. hypertension C64.1 Malignant neoplasm of right kidney, except renal pelvis R73.01 Impaired fasting glucose R29.890 Loss of height Z00.01 Encounter for general adult medical exam w abnormal findings M54.5 Low back pain Z23 Encounter for immunization Office Visit 01/10/2018 10:00a [facility] Office Suri Adame, I10 Essential (primary) M.D. hypertension C64.1 Malignant neoplasm of right kidney, except renal pelvis J06.9 Acute upper respiratory infection, unspecified D72.89 Other specified disorders of white blood cells Office Visit 11/30/2017 4:40p [facility] Suri Adame, J06.9 Acute upper M.D. 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 (primary) hypertension C64.1 Malignant neoplasm of right kidney, except renal pelvis E78.1 Pure hyperglyceridemia Z00.00 Encntr for general adult medical exam w/o abnormal findings D72.819 Decreased white blood cell count, unspecified M54.5 Low back pain Z23 Encounter for immunization Office Visit 01/26/2017 10:50a [facility] Suri Adame, E78.4 Other hyperlipidemia M.D. 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 K92.1 Melena Office Visit 02/06/2015 1:00p Main Office Carter Burton M.D. 695.3 Rosacea 110.1 Dermatophytosis Nail Office Visit 10/17/2014 1:40p Main Office Carter Burton V72.83 Examination M.D. Preoperative Other Spec V72.84 Examination Preoperative Unspec 726.0 Adhesive Capsulitis Shoulder Office Visit 07/10/2014 11:20a Main Office Carter Burton M.D. 401.9 Hypertension Unspec 840.9 Sprains & Strains Shoulder & Upper Arm Unspec 564.1 Irritable Bowel Syndrome Office Visit 06/04/2014 2:10p [facility] Carter Burton V70.0 Examination M.D. General Medical Routine AT Health Care Facility 401.9 Hypertension Unspec 272.4 Hyperlipidemia Other Unspec 782.1 Rash & Other Nonspec Skin Eruption 840.9 Sprains & Strains Shoulder & Upper Arm Unspec 564.1 Irritable Bowel Syndrome 715.09 Osteoarthrosis Generalized Multiple Sites V58.66 Long-Term Use Of Aspirin Office Visit 05/01/2014 2:00p [facility] Office Sheela Mathur, 401.9 Hypertension Afnp-C Unspec 272.4 Hyperlipidemia Other Unspec Plan of Treatment 01/31/2019 - Suri Adame M.D.C64.1 Malignant neoplasm of right kidney, except renal pelvisComments:following Dr Moreno and Elizabeth ;I10 Essential (primary) hypertensionComments:The patient will continue to monitor blood pressure and let me know the blood pressure results if there are readings persistently above 140/90. Goal blood pressure is less than 130/80. Recommend low salt/cardiac diet such as the Mediterranean diet and routine exercise at least 30 minutes a day.Follow up:6 [id number] Other specified disorders of bone density and structure, unspecified siteComments:1200mg Calcium and vitamin D 1000 units daily with weight bearing exerciseAllComments:Medication Management Patient Understands medications he's taking? Yes No Are there Barriersto Adherence? Yes No Has the patient been asked about herbal supplements and therapies, and OTC meds? Yes No
[2019-02-11] MEDS ORDERED: NS 0.9% 1000 ML** 1,000 ML IV ONE ×2 (14:03→14:04)
--- NOTE | 2019-02-11 14:08 | ED ---
Neurological HPI - HPI Summary HPI Summary: Time seen by provider: 1400. The patient is a 68 y/o M presenting to [facility] accompanied by with a chief complaint of sudden onset confusion this morning when he woke up at 0530 this morning. He reports that he got up and was searching for a cat that he doesn't have. His also notes that they were out shopping, and he was unable to figure out how to get back into the car, which is when she brought him here. He additionally c/o diffuse abd pain this morning and body tremors. He denies dysuria, changes in urinary frequency, and slurring of speech. He has hx of HTN and HLD, but no hx of Afib, DM, AZ, or CVA/TIA. He reports that his last known well was at 2100 yesterday. Nonsmoker, drinks 6-7 beers a day. - History of Current Complaint Chief Complaint: EDNeurologicalDeficit Stated Complaint: STROKE LIKE SYMPTOME PER PT Hx Obtained From: Patient, Family/Compliance Technician - Onset/Duration: Sudden Onset, Started hours ago, Still Present Timing: Sudden Onset Onset Severity: Moderate Current Severity: Moderate Neurological Deficit Location: Generalized - confusion Pain Intensity: 0 Pain Scale Used: 0-10 Numeric Character: Other: - POSITIVE: confusion, diffuse abd pain, body tremors; NEGATIVE: dysuria, changes in urinary frequency, slurred speech - Allergy/Home Medications Allergies/Adverse Reactions: Allergies Allergy/AdvReac Type Severity Reaction Status Date / Time No Known Allergies Allergy Verified 11/01/16 06:58 PMH/Surg Hx/FS Hx/Imm Hx Endocrine/Hematology History: Reports: Hx Anticoagulant Therapy - low dose 81 mg ASA Denies: Hx Diabetes Cardiovascular History: Reports: Hx Hypercholesterolemia, Hx Hypertension - WELL CONTROLLED Denies: Hx Pacemaker/ICD Respiratory History: Reports: Hx Sleep Apnea, Other Respiratory Problems/ Disorders - ex-smoker (1ppd x 30 years) GI History: Reports: Hx Diverticulosis, Hx Obstructive Bowel, Other GI Disorders - polyps Musculoskeletal History: Reports: Hx Arthritis - HANDS, SHOULDERS, Other Musculoskeletal History - s/p surgery bilateral hand contractures Sensory History: Reports: Hx Contacts or Glasses - GLASSES, Hx Glaucoma - STARTED ON EYE DROPS 09/24, BEING EVALUATED AGAIN 11/2016 Denies: Hx Hearing Aid Opthamlomology History: Reports: Hx Contacts or Glasses - GLASSES, Hx Glaucoma - STARTED ON EYE DROPS 09/24, BEING EVALUATED AGAIN 11/2016 Neurological History: Reports: Other Neuro Impairments/Disorders - Short term memory loss, (right) sided numbness. Psychiatric History: Denies: Hx Panic Disorder - Surgical History Surgery Procedure, Year, and Place: 2006 [facility]- (left) Dupuytren release little finger and palm mass. 03/2008 [facility]- (right) Dupuytren release ring & middle fingers,. 2011 [facility]- (right) ulnar nerve transposition. Hammer toe left foot 4th toe many yrs ago. tonsillectomy as a child. Tonsils (age 12),. Dental surgery. 10/2014 RT SHOULDER [facility] Hx Anesthesia Reactions: No Infectious Disease History: No Infectious Disease History: Denies: Traveled Outside the [place] in Last 30 Days - Family History Known Family History: Positive: Diabetes - Social History Alcohol Use: Daily Alcohol Amount: 6-7 DRINKS/DAY Hx Substance Use: No Substance Use Type: Reports: None Hx Tobacco Use: No Smoking Status (MU): Former Smoker Type: Cigarettes Amount Used/How Often: 1PPD 30 YRS Length of Time of Smoking/Using Tobacco: 30 YRS Have You Smoked in the Last Year: No Review of Systems Positive: Other - body tremors Positive: Abdominal Pain Negative: dysuria, frequency - normal Neurological: Other - confusion Negative: Slurred Speech All Other Systems Reviewed And Are Negative: Yes Physical Exam - Summary Physical Exam Summary: GENERAL: Patient is a well-developed and nourished male who is lying comfortable in the stretcher. Patient is not in any acute respiratory distress. HEAD AND FACE: Normocephalic EYES: PERRLA, EOMI x 2. EARS: Hearing grossly intact. MOUTH: Oropharynx within normal limits. NECK: Supple, trachea is midline, no adenopathy, no JVD, no carotid bruit. CHEST: Symmetric, no tenderness at palpation LUNGS: Clear to auscultation bilaterally. No wheezing or crackles. CVS: Tachycardic rate and rhythm, S1 and S2 present, no murmurs or gallops appreciated. ABDOMEN: Soft, non-tender. Bowel sounds are normal. No abnormal abdominal pulsations. EXTREMITIES: Full ROM in all major joints, no edema, no cyanosis or clubbing. NEURO: Alert and oriented x 3. No acute neurological deficits except for mild altered status. Speech is normal and follows commands. Exhibits cranial nerves II-VII intact SKIN: Dry and warm Triage Information Reviewed: Yes Vital Signs On Initial Exam: Initial Vitals Temp Pulse Resp BP Pulse Ox 99.1 F 133 21 178/100 95 02/11/19 13:48 02/11/19 13:48 02/11/19 13:48 02/11/19 13:48 02/11/19 13:48 Vital Signs Reviewed: Yes - Bernardino Coma Scale Best Eye Response: 4 - Spontaneous Best Motor Response: 6 - Obeys Commands Best Verbal Response: 4 - Confused Coma Scale Total: 14 Diagnostics - Vital Signs Vital Signs Temp Pulse Resp BP Pulse Ox 02/11/19 13:48 99.1 F 133 21 178/100 95 - Laboratory Result Diagrams: 02/11/19 13:46 02/11/19 13:46 Lab Statement: Any lab studies that have been ordered have been reviewed, and results considered in the medical decision making process. - Radiology CXR Radiology Interpretation Completed By: Radiologist Summary of Radiographic Findings: No radiographic evidence of acute cardiopulmonary disease. ED physician has reviewed this report. - CT Brain CT CT Interpretation Completed By: Radiologist Summary of CT Findings: CT findings are most consistent with very mild chronic microvascular disease without acute intracranial abnormality. ED physician has reviewed this report. - EKG 13:56 Cardiac Rate: Tachycardia - 120 bPM EKG Rhythm: Sinus Tachycardia EKG Comparison: Other - No previous EKG for comparison. Summary of EKG Findings: Minimal ST depression in anterior and lateral leads. 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 Operator/Release Non-Paretic Hand: Both Correctly Best Gaze (Only Horizontal Eye Movement): Normal Visual Field Testing: No Visual Loss Facial Paresis-Pt to Smile & Close Eyes or Grimace Symmetry: Normal/Symmetrical Motor Function - Right Arm: No Drift-Holds 10 Seconds Motor Function - Left Arm: No Drift-Holds 10 Seconds Motor Function - Right Leg: No Drift-Holds 10 Seconds Motor Function - Left Leg: No Drift-Holds 10 Seconds Limb Ataxia-Must be out of Proportion to Weakness Present: Absent Sensory (Use Pinprick to Test Arms/Legs/Trunk/Face): Normal Best Language (Describe Picture, Name Items): No Aphasia Dysarthria (Read Several Words): Normal Extinction and Inattention: No Abnormality Total Score: 0 Re-Evaluation - Re-Evaluation First Eval Re-Evaluation Time: 17:12 Change: Unchanged Comment: I spoke with the patient concerning admission to [facility] for further care. He still isn't feeling well. Course/Dx - Course Course Of Treatment: Time seen by provider: 1400. The patient is a 68 y/o M presenting to [facility] accompanied by with a chief complaint of sudden onset confusion this morning when he woke up at 0530 this morning with episodes of trying to find a cat that he didnt have and difficulty figuring out how to get in the car. Upon physical exam, the patient exhibits cranial nerves II-VII intact, tachycardiac, and body tremors; GCS: 14, NIH: 1. In the ED course, the patient was given Ns, Potassium Chloride, Ativan, and Thiamine. EKG reveals sinus tachycardia at [address] depression in anterior and lateral leads. CXR reveals no acute process. Brain CT reveals no acute intracranial abnormality. I spoke with Dr. Dobbs, hospitalist, at 1740 concerning admission. She accepts the patient at this time. He is diagnosed with altered mental status. He agrees with plan and understands the need for admission at this time. - Diagnoses Provider Diagnoses: Altered mental status - Physician Notifications Discussed Care Of Patient With: Lor Dobbs - hospitalist Time Discussed With Above Provider: 17:40 Instructed by Provider To: Other - I discussed the case with the hospitalist. She accepts the patient for admission. Discharge - Sign-Out/Discharge Documenting (check all that apply): Patient Departure - Patient will be admitted to [facility] for further care. Patient Received Moderate/Deep Sedation with Procedure: No - Discharge Plan Condition: Stable Disposition: ADMITTED TO [facility] - Billing Disposition and Condition Condition: STABLE Disposition: Admitted to [facility] - Attestation Statements Document Initiated by Fidencio: Yes Documenting Scribe: Fide Solorzano Provider For Whom Fidencio is Documenting (Include Credential): Dr. Maritza Francisco MD Scribe Attestation: Fide Tomlinson scribed for Dr. Maritza Francisco MD on 02/12/19 at 1306. Scribe Documentation Reviewed: Yes Provider Attestation: The documentation as recorded by the scribe, Fide Solorzano accurately reflects the service I personally performed and the decisions made by me, Dr. Maritza Francisco MD Status of Fidencio Document: Viewed
[2019-02-11 15:04] LABS: Hematocrit 40 % (42-52); Hemoglobin 13.6 g/dL (14.0-18.0); Mean Corpuscular HGB Conc 34 g/dL (31-36); Mean Corpuscular Hemoglobin 33 pg (27-31); Mean Corpuscular Volume 97 fL (80-94); Platelet Count 229 10^3/uL (150-450); Red Blood Count 4.11 10^6 /uL (4.18-5.48); Red Cell Distribution Width 14 % (10.5-15); White Blood Count 7.4 10^3/uL (3.5-10.8)
[2019-02-11 15:13] LABS: ABS Lymphocytes 0.5 10^3/ul (1.0-4.8); ABS Monocytes 0.8 10^3/ul (0-0.8); ABS Neutrophils 5.9 10^3/ul (1.5-7.7); Activated Partial Thrombo Time 23.8 seconds (26.0-36.3); INR 1.04 (0.82-1.09); Lymphocyte % 6.6 %
[2019-02-11 15:21] LABS: ALT 19 U/L (7-52); AST 21 U/L (13-39); Albumin 4.4 g/dL (3.2-5.2); Albumin/Globulin Ratio 1.9 (1-3); Alkaline Phosphatase 50 U/L (34-104); Anion Gap 11 mmol/L (2-11); BUN/Creatinine Ratio 19.4 (8-20); Blood Urea Nitrogen 14 mg/dL (6-24); C Reactive Protein 1.01 mg/L (<8.01); CO2 Carbon Dioxide 25 mmol/L (22-32); Calcium 8.6 mg/dL (8.6-10.3); Chloride 100 mmol/L (101-111); EGFR African American 131.4 (>60); EGFR Non-African American 108.6 (>60); Globulin 2.3 g/dL (2-4); Glucose 106 mg/dL (70-100); Potassium 3.6 mmol/L (3.5-5.0); Sodium 136 mmol/L (135-145); Total Protein 6.7 g/dL (6.4-8.9)
[2019-02-11 15:25] LABS: BNP 59 pg/mL (<=100)
[2019-02-11 15:31] LABS: Alcohol < 10 mg/dL (<10)
[2019-02-11] MEDS ORDERED: Lorazepam PYXIS KEY PRN (16:00)
[2019-02-11] MEDS ORDERED: LORazepam INJ* 2 MG/ML 1 ML VIAL IV PUSH ONE (16:00)
[2019-02-11 16:03] LABS: Urine Appearance Cloudy; Urine Bilirubin Negative (Negative); Urine Blood Negative (Negative); Urine Color Yellow; Urine Glucose Negative (Negative); Urine Ketones 2+ (Negative); Urine Nitrite Negative (Negative); Urine Protein Negative (Negative); Urine Specific Gravity 1.018 (1.010-1.030); Urine Urobilinogen Negative (Negative)
[2019-02-11] MEDS ORDERED: Lorazepam PYXIS KEY ONE (16:06)
[2019-02-11] MEDS ORDERED: LORazepam INJ* 2 MG/ML 1 ML VIAL ONE (16:06)
[2019-02-11] MEDS ORDERED: Acetaminophen TAB* 325 MG PO PRN (18:21)
[2019-02-11] MEDS ORDERED: Thiamine IV* 100 MG/ML 2 ML VIAL IM ONE (18:29)
[2019-02-11] MEDS ORDERED: Potassium Chlor TAB* 20 MEQ TAB.ER PO ONE (18:33)
[2019-02-11] MEDS ORDERED: Metoprolol Succinate XL TAB* 50 MG PO SCH (18:45)
[2019-02-11 18:58] LABS: Magnesium 2.2 mg/dL (1.9-2.7)
[2019-02-11] MEDS ORDERED: Enoxaparin(*) 40 MG/0.4 ML SYR SUBCUT SCH (19:00)
[2019-02-11] MEDS ORDERED: LORazepam INJ* 2 MG/ML 1 ML VIAL IV PUSH SCH (19:00)
[2019-02-11 19:15] LABS: TSH (Thyroid Stimulating Horm) 1.04 mcIU/mL (0.34-5.60)
[2019-02-11] MEDS ORDERED: Atorvastatin* 20 MG TAB PO SCH (21:00)
--- NOTE | 2019-02-11 22:28 | HP ---
CC: Dr. Suri Adame.* HISTORY AND PHYSICAL: DATE OF ADMISSION: 02/11/19 PRIMARY CARE PHYSICIAN: Dr. Suri Adame. HEALTHCARE PROXY: His , Gian. CODE STATUS: Full. CHIEF COMPLAINT: Altered mental status, disorientation for a few hours. HISTORY OF PRESENT ILLNESS: Mr. Gerard is a 68-year-old man with hypertension, osteoarthritis, rosacea, who presents with his for disorientation since the morning. The patient reports that he has been in his usual state of health without any recent dietary changes or signs of infection and he woke up this morning and states that he was confused. He says that he has one cat at home but was looking for a second cat that they do not have. He and his went to [facility], and while there, he was having difficulty understanding how to use his debit card, so when they finished shopping, they drove right from [facility] to [facility]. states that the patient did not look different to her at this time , denied facial droop or slurred speech. The patient also denied issues with gait or new onset of weakness or fumbling with objects in his hand. The patient also denied fevers, chills, or night sweats recently, although he reports that this morning during the episodes of confusion he experienced tremulousness and feeling warm but did not take his temperature. The only other associated symptom reported is decreased appetite today and the patient has so far not taken any of his medications. The patient otherwise denies headache, neck stiffness, upper respiratory infection, chest pain, shortness of breath, abdominal pain, nausea, vomiting, constipation, diarrhea, or new rash. He does report an older rash, for which he was referred to Dermatology. He reports that he recently had shingles, which has resolved, but the medication he took for shingles causedo a rash around his face, trunk, and extremities that has resolved except for some scabbing over his ears. Otherwise, 10-point review of systems is negative. In the emergency room, he was afebrile but tachycardic to 120 with sinus tachycardia with minimal ST depressions noted in the anterior leads. The patient continues to deny chest pain, shortness of breath, diaphoresis, and his first troponin was negative. He was given 2 L of normal saline and lorazepam 0.5 mg given concern for alcohol withdrawal, although the patient states that he drinks approximately 6 to 7 drinks per day and this has not changed recently and he has not been trying to quit. He is admitted to Medicine for altered mental status. PAST MEDICAL HISTORY: 1. Hypertension. 2. High cholesterol. 3. Alcohol use disorder. 4. Rosacea. 5. Seasonal allergies. 6. Osteoarthritis HOME MEDICATIONS: 1. Lisinopril 10 mg daily. 2. Metoprolol succinate 25 mg daily and metoprolol tartrate 25 mg once a day ( this is on list by and she reports the patient takes this as well every day ). 3. Atorvastatin 20 mg daily. 4. Aspirin. 5. Meloxicam 7.5 mg twice a day. 6. Topical creams including hydrocortisone and emollient cream. 7. Zyrtec. 8. Vitamin B complex daily. 9. Meclizine 12.5 mg 3 times a day as needed for dizziness. ALLERGIES: No known drug allergies. FAMILY HISTORY: The patient's father of heart failure at the age of 60. Mother of old age in her 90s. SOCIAL HISTORY: The patient lives with his of 40 years. 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 He quit tobacco use at the age of 58. He smoked for 40 years of just under a pack per day. He reports drinking 6 to 7 light beers per day. No history of alcohol withdrawal or alcohol withdrawal seizures or intubation. Denies other drugs. PHYSICAL EXAMINATION GENERAL: Well-appearing friendly man, in no acute distress, nontoxic. VITAL SIGNS: T-max 99.7, heart rate 110, blood pressure 149/79, respiratory rate 12, oxygen saturation 96% on room air. HEENT: Oropharynx clear. Moist mucous membranes. NECK: No JVD. Supple, able to touch chin to chest without pain. LUNGS: Clear to auscultation bilaterally. HEART: Tachycardic. Regular rhythm. No murmur, gallops, rubs. ABDOMEN: Soft, nontender, and nondistended. EXTREMITIES: Lower extremities without edema. Warm and well-perfused. NEURO: A and O x3. No slurred speech. CN II through XII intact. Elbow flexion and extension 5/5 bilaterally. Handgrip 5/5 bilaterally. Lower extremities with hip flexion and knee flexion-extension 5/5 bilaterally. Sensation intact b/l over extremities and trunk. [id number] normal bilaterally in hands. SKIN: Flaky greasy skin noted around hairline and over ears. Some scabs on ears. DIAGNOSTIC STUDIES/LAB DATA: Labs reviewed and significant for mild macrocytic anemia, hemoglobin 13.6, MCV 97, no known baseline. BMP unremarkable. Lactic acid 1. UA notable for ketones. CRP 1. BNP 59. TSH pending. Chest x-ray PA and lateral without radiographic evidence of acute pulmonary disease. Brain CT, most consistent with very mild chronic microvascular disease without acute intracranial abnormality. ASSESSMENT AND PLAN: This is a 68-year-old man with a history of hypertension, hyperlipidemia, OA, and alcohol use disorder who is presenting after a morning of disorientation associated with tremulousness and feeling warm, which has self resolved without intervention. He is found in the emergency department with tachycardia with labs largely unremarkable and imaging of chest and head not concerning for an acute process. 1. Altered mental status, resolved. Unclear what process caused altered sensorium and disorientation in the morning that spontaneously resolved, but differential is incredibly broad. Given tremulousness and feeling warm without focal neuro deficits, it is unlikely to be an ischemic process in the brain. The patient does have tachycardia and reported feeling warm, but he is without an elevated white count and his CRP is normal, which makes infection less likely. He also has no other focal symptoms of infection. The patient has not recently discontinued alcohol use, so withdrawal is unlikely, and he has no e/o cirrhosis, and his ammonia level is normal. If the patient had metabolic encephalopathy, it seems to have already resolved, which makes something like an infectious cause of encephalopathy or meningitis less likely and there are no physical exam findings to suggest this as well. The patient reports a new mass on his kidneys, for which he is undergoing workup, so I will order a urine and serum metanephrines in case he means adrenal mass, as pheochromocytoma could cause noted tachycardia, tremulousness and feeling warm; however, I do not think this would explain an altered mental status. I have also ordered a TSH. Will follow up blood cultures and will consider brain MRI if mental status changes again (currently back at baseline). 2. Alcohol use disorder. I do not think the patient is currently withdrawing from alcohol given no recent decrease in alcohol use, although this is certainly something that can happen overnight or tomorrow while in the hospital on observation. We will order WAM protocol with thiamine and folate. 3. Tachycardia. This could be from infection as noted above, although currently without clear evidence for infection. The patient also seems to be taking 2 types of metoprolol at home and has not taken either in the last day, so this this could be a reflex tachycardia. He had poor p.o. today but on my exam he was status post 2 L of fluid in the ICU still with tachycardia. His EKG is not concerning for new arrhythmia. We will order the patient's home metoprolol dose to start now. Monitor for signs of alcohol withdrawal and infection as above. Follow up TSH. 4. Hypertension. Continue home lisinopril and metoprolol. 5. DVT prophylaxis. We will start the patient on Lovenox. TIME SPENT: Approximately 60 mins spent on admission of this patient, more than half of which was at bedside for interview and exam. [id number]/[facility] #: [id number] MTDD
[2019-02-12] MEDS ORDERED: Lisinopril TAB* 10 MG PO SCH (09:00)
[2019-02-12] MEDS ORDERED: Thiamine TAB* 100 MG TAB PO SCH (09:00)
[2019-02-12] MEDS ORDERED: Folic Acid TAB* 1 MG PO SCH (09:00)
[2019-02-12] MEDS ORDERED: Latanoprost 0.005%* 2.5 ml BTL BOTH EYES SCH (09:00)
[2019-02-12] MEDS ORDERED: Multivitamins/Minerals TAB PO SCH (09:00)
[2019-02-12] MEDS ORDERED: Lisinopril TAB* 10 MG PO ONE (10:11)
[2019-02-12] MEDS ORDERED: Aspirin EC TAB* 81 MG TAB.EC PO SCH (11:00)
[2019-02-12 14:18] VITALS: BP 165/87
[2019-02-13] MEDS ORDERED: Lisinopril TAB* 10 MG PO SCH (09:00)
--- NOTE | 2019-02-13 11:45 | DS ---
CC: Suri Adame MD * DISCHARGE SUMMARY: DATE OF ADMISSION: 02/11/19 DATE OF DISCHARGE: 02/12/19 PRIMARY CARE PHYSICIAN: Suri Adame MD PRIMARY DIAGNOSIS: Transient encephalopathy, possibly from severe hypertension. SECONDARY DIAGNOSES: 1. Hypertension. 2. Alcohol use disorder. 3. Seasonal allergies. 4. Osteoarthritis. DISCHARGE MEDICATIONS: 1. Metoprolol succinate 50 mg daily. 2. Lisinopril 20 mg daily. 3. Aspirin 81 mg daily. 4. Cetirizine 10 mg daily. 5. Meloxicam 7.5 mg twice a day as needed for pain. 6. Atorvastatin 20 mg daily. 7. Vitamin B complex. 8. Multivitamins. HISTORY OF PRESENT ILLNESS: This is a 68-year-old man with hypertension, osteoarthritis, alcohol use disorder, rosacea, who presents with his for brief episode of disorientation in the morning. He reports that he was in his usual state of health without recent dietary changes or infections when he woke up in the morning and was noted to be confused. He states that he has 1 cat at home, but this morning had been looking for a second cat that did not exist. He and his had gone to [facility] and while there he was having difficulty understanding how to use his debit card, so when they finish shopping, they drove to [facility] [place] further evaluation. The states that the patient did not look different to her during this episode. He had no facial droop or slurred speech. The patient denied issues with gait and denied a new onset of weakness or fumbling with objects in his hand. The patient had also denied fevers, chills , or night sweats, although he states that during the morning episode of confusion, he had tremulousness and felt warm, but did not take his temperature. The only other associated symptom during this time has been decreased appetite on morning of presentation, so the patient had also skipped the morning doses of his medications. Otherwise, he denied headache, neck stiffness, upper respiratory infection, chest pain, shortness of breath, abdominal pain, nausea, vomiting, constipation, diarrhea, or new rash. He reports shingles few months ago for which he took Valtrex and broke out in a rash and was referred to Dermatology. He currently only has some scabs over his ears left from this episode, otherwise 10-point review of systems is negative. HOSPITAL COURSE: In the emergency room, the patient was afebrile but tachycardic to 120 with sinus tachycardia and minimal ST depressions noted in the anterior leads. He had denied chest pain, shortness of breath, diaphoresis, and his first troponin was negative. He was given 2 L of normal saline with lorazepam, given concern for dehydration or alcohol withdrawal as cause of his tachycardia, however, his heart rate did not change. He was admitted to Medicine and observed on telemetry overnight with restarting of his home medications. Of note, the patient states that he has been taking metoprolol succinate 25 once a day, metoprolol tartrate 25 also once a day, both of which he missed in the morning. In the hospital initially, his blood pressure was noted to be 178/100, but after restarting home metoprolol, his heart rate by the next morning had returned to 70s and he also had a blood pressure of 159/71. Throughout his admission, the patient had no recurrence of his symptoms of disorientation. He was able to walk around the floors unassisted. He is continuing to deny any focal signs of infection. His blood cultures had preliminarily no growth to date. His CRP, TSH, and ammonia levels were normal. His UA was also normal. He did not require Ativan for alcohol withdrawal overnight. It was thought that his episode of disorientation could have possibly been from a hypertensive encephalopathy, although it is unclear at this time what exactly caused his presenting symptoms that spontaneously self resolved. His blood pressure medicines were optimized. The patient did mention history of kidney tumor, but is unknown if this is actually an adrenal tumor, so he had urine and serum metanephrines, which were pending at the time of discharge. PERTINENT STUDIES AND LABS: Macrocytic anemia, hemoglobin 13.6, MCV 97. BMP and LFTs unremarkable. Normal TSH, CRP, and ammonia level. Normal troponins x2. Chest x-ray: No radiographic evidence of acute pulmonary disease. Meek CT: Most consistent with very mild chronic microvascular disease without intracranial abnormality. EKG: Sinus tachycardia [address] depression in anterolateral leads that resolved with normalization of heart rate. DISCHARGE PLAN: The patient is to follow up closely with his primary care physician. He was educated to continue to check his blood pressures frequently at home and bring a log to his PCP. It was also recommended that he cut back on alcohol as he currently drinks up to 7 beers per day, which has not recently changed. His blood pressure medications were changed as above, notably increasing his metoprolol to 50 mg daily and increasing his lisinopril to 20 mg daily. He was asked to stop taking metoprolol tartrate. The patient and his were given return precautions, which include but are not limited to fever, chest pain, shortness of breath, or focal neuro findings. DISPOSITION: To home. CONDITION: Good. TIME SPENT: Approximately 60 minutes was spent on the discharge of this patient ; more than half of which was spent with care, coordination and at bedside for interview and exam. [id number]/[facility] #: [id number] ANGY
[2019-02-14 12:31] LABS: Plasma Free Metanephrine 0.31 nmol/L (<0.50); Plasma Free Normetanephrine 0.38 nmol/L (<0.90)
--- NOTE | 2019-02-21 00:05 | HP ---
HISTORY AND PHYSICAL: ADDENDUM: DATE OF ADMISSION: 02/11/19 REVIEW OF SYSTEMS: A 10-point review of systems performed and all pertinent positives and negatives as per HPI. [id number]/[facility] #: [id number] MTDD
== END 2019-02-12 15:05 | disposition home or self-care (01) ==
LOC: ED 13:45 → MED 18:21
PROVIDERS: ADMIT Internal Medicine; ATTEND Internal Medicine
DX: G93.40 Encephalopathy, unspecified (principal); I10 Essential (primary) hypertension; R41.0 Disorientation, unspecified; Z87.891 Personal history of nicotine dependence; J30.2 Other seasonal allergic rhinitis; Z79.01 Long term (current) use of anticoagulants; G47.33 Obstructive sleep apnea (adult) (pediatric); R30.0 Dysuria; R10.9 Unspecified abdominal pain; F10.10 Alcohol abuse, uncomplicated; R41.82 Altered mental status, unspecified; M19.90 Unspecified osteoarthritis, unspecified site; Z79.82 Long term (current) use of aspirin; Z79.899 Other long term (current) drug therapy; R00.0 Tachycardia, unspecified
CPT/HCPCS: 36415; 70450; 71046; 80053; 80320; 81003; 82140; 83605; 83735; 83835; 83880; 84443; 84484; 85025; 85610; 85730; 86140; 87040; 93005; 96372; 96374; 99284; A9270-GY; G0378; G0480; J1650; J2060; J3411

== ENCOUNTER 2023-11-05 10:34 | Inpatient (IN) ==
[2023-11-05 11:33] LABS: ABS Lymphocytes 0.5 10^3/uL (1.0-4.8); ABS Monocytes 0.6 10^3/uL (0.0-1.1); ABS Neutrophils 6.2 10^3/uL (1.5-7.6); ABS Nucleated RBC 0.01 10^3/ul; Eosinophil % 0.3 %; Hemoglobin 14.9 g/dL (13.2-16.3); Lymphocyte % 7.4 %; Mean Corpuscular Hemoglobin 33.2 pg (27-33); Mean Corpuscular Hgb Conc 34.6 g/dL (31-36); Mean Corpuscular Volume 95.8 fL (80-97); Mean Platelet Volume 7.9 fL (7.5-11.2); Nucleated Red Blood Cells % 0.1 %/100WBC (0.0-0.8); Platelet Count 232 10^3/uL (150-450); Red Blood Count 4.49 10^6/uL (4.06-5.63); Red Cell Distribution Width 13.6 % (12-17); White Blood Count 7.5 10^3/uL (3.6-10.2)
[2023-11-05 11:50] LABS: Albumin 4.1 g/dL (3.2-5.2); Albumin/Globulin Ratio 1.5 (1-3); C Reactive Protein 3.65 mg/L (<8.01); Calcium 9.2 mg/dL (8.6-10.3); Creatinine, Serum 0.72 mg/dL (0.67-1.17); Globulin 2.7 g/dL (2-4); Magnesium 2.3 mg/dL (1.9-2.7); Phosphorus 1.2 mg/dL (2.5-5.0); Potassium 4.1 mmol/L (3.5-5.0); Total Bilirubin 0.4 mg/dL (0.2-1.0); Total Protein 6.8 g/dL (6.4-8.9); eGFR CKD-EPI 96.5 (>60)
[2023-11-05 12:59] LABS: High Sensitivity Troponin 1 Hr 10 pg/mL (<20)
[2023-11-05] MEDS ORDERED: LORazepam 2 mg VIAL 1 ml ONE (13:02)
[2023-11-05] MEDS: LORazepam 2 mg VIAL 1 ml IV PUSH ONE ×2 (13:03→15:36)
[2023-11-05] MEDS ORDERED: levETIRAcetam 1000MG IVPREMIX 1,000 MG/100 ML BAG ONE (13:03)
[2023-11-05] MEDS: levETIRAcetam 1000MG IVPREMIX 1,000 MG/100 ML BAG IVPB ONE (13:04)
[2023-11-05] MEDS: Acetaminophen IV 1 GM/100ML 1,000 MG/100 ML BAG IV PRN (14:54)
[2023-11-05] MEDS ORDERED: LORazepam 2 mg VIAL 1 ml IV PUSH SCH (15:00)
[2023-11-05] MEDS ORDERED: Thiamine 100 MG/ML 2 ml VIAL 100 MG in NS 0.9% 50 ML 50 ML IV SCH (15:00)
[2023-11-05] MEDS ORDERED: Lorazepam PYXIS KEY PRN (15:30)
[2023-11-05] MEDS: Thiamine 100 MG/ML 2 ml VIAL 100 MG, Folic Acid IV 1 MG, Multiple Vitamin IV ADULT 10 M... IV ONE (17:11)
[2023-11-05] MEDS: Thiamine 100 MG/ML 2 ml VIAL (200 mg) IM ONE (17:12)
[2023-11-05] MEDS: Enoxaparin 40 MG/0.4 ML SYR SUBCUT SCH (17:54)
[2023-11-05] MEDS: levETIRAcetam 500 MG IVPREMIX 500 MG/100 ML BAG IV SCH ×2 (23:06→23:23)
[2023-11-06 07:01] LABS: ABS Lymphocytes 0.6 10^3/uL (1.0-4.8); ABS Monocytes 0.6 10^3/uL (0.0-1.1); ABS Neutrophils 2.8 10^3/uL (1.5-7.6); Eosinophil % 1.1 %; Hematocrit 37.2 % (38-53); Hemoglobin 12.9 g/dL (13.2-16.3); Mean Corpuscular Hemoglobin 33.4 pg (27-33); Mean Corpuscular Hgb Conc 34.7 g/dL (31-36); Mean Corpuscular Volume 96.3 fL (80-97); Mean Platelet Volume 8.4 fL (7.5-11.2); Platelet Count 195 10^3/uL (150-450); Red Blood Count 3.86 10^6/uL (4.06-5.63); Red Cell Distribution Width 13.6 % (12-17); White Blood Count 4.1 10^3/uL (3.6-10.2)
[2023-11-06 07:25] LABS: Calcium 8.2 mg/dL (8.6-10.3); Creatinine, Serum 0.61 mg/dL (0.67-1.17); Magnesium 2.3 mg/dL (1.9-2.7); Potassium 3.5 mmol/L (3.5-5.0); eGFR CKD-EPI 101.4 (>60)
[2023-11-06] MEDS: Thiamine 100 MG/ML 2 ml VIAL 100 MG in NS 0.9% 50 ML 50 ML IV SCH (16:00)
[2023-11-07] MEDS: Multivitamins/Minerals TAB PO SCH (07:44)
[2023-11-07] MEDS ORDERED: Aspirin EC 81 mg TAB.EC (enteric coated) PO SCH (09:00)
[2023-11-07] MEDS: Gadoteridol (CONTRAST) 279.3 MG/ML 10 ML IV ONE (10:30)
[2023-11-07] MEDS: Potassium Phosphate IV 20 MMOL in NS 0.9% 250 ml 250 ML IVPB ONE (11:09)
[2023-11-07 14:08] VITALS: BP 133/68
== END 2023-11-07 17:30 | disposition home or self-care (01) | DRG 101 ==
LOC: EDHOLD 10:34 → ED 10:34 → OBSVTOIN 13:45 → MED 15:04
PROVIDERS: ADMIT Internal Medicine; ATTEND Internal Medicine